=== PATIENT | female | born 1955 | race Caucasian/White ===

== ENCOUNTER 2017-03-19 20:18 | Emergency (ER) | payer OTHER ==
[2017-03-19 22:52] VITALS: BP 131/79
== END 2017-03-19 22:52 | disposition home or self-care (01) ==
LOC: ED 20:18
DX: K04.7 Periapical abscess without sinus (principal); H92.02 Otalgia, left ear; I10 Essential (primary) hypertension; E11.9 Type 2 diabetes mellitus without complications; E78.5 Hyperlipidemia, unspecified
CPT/HCPCS: J2001

== ENCOUNTER 2017-04-02 19:54 | Inpatient (IN) | payer OTHER ==
[~2017-04-02] VITALS: Ht 157.5 cm; Wt 80.4 kg
--- NOTE | 2017-04-02 21:24 | NUR ---
DR ATKINSON AT BEDSIDE FOR MSE.
--- NOTE | 2017-04-02 21:24 | NUR ---
REC'D A 61/F IN RM 9 WITH C/O CONSTIPATION X 1 WEEK. PT REPORTS DIZZINESS AND VOMITING X 1 DAY. PT AAOX4, RESP EVEN AND UNLABORED. ON CM. DAUGTHER AT BEDSIDE. CALL LIGHT WITHIN REACH, WILL CONTINUE TO MONITOR.
[2017-04-02 21:45] LABS: BASOPHIL % 0.3 % (0-2); PLATELET COUNT 291 x10^3mcL (130-400)
[2017-04-02 21:46] LABS: RED CELL DISTRIBUTION WIDTH 16.4 % (11.5-14.5)
--- NOTE | 2017-04-02 21:48 | NUR ---
MEDICATED PT FOR CONSTIPATION.
[2017-04-02 22:01] LABS: ALBUMIN 4.1 g/dL (3.4-5.0); ALKALINE PHOSPHATASE 107 U/L (46-116); ALT/SGPT 26 U/L (14-59); AMYLASE 43 U/L (25-115); AST/SGOT 33 U/L (15-37); BILIRUBIN TOTAL 0.61 mg/dL (0.20-1.00); CARBON DIOXIDE 37.2 mmol/L (21-32); CHLORIDE SERUM 98 mmol/L (98-107); CREATININE SERUM 0.9 mg/dL (0.6-1.0); GFR1 > 60 mL/min; LIPASE 292 IU/L (73-393); POTASSIUM SERUM 3.7 mmol/L (3.5-5.1); SODIUM SERUM 142 mmol/L (136-145); TOTAL PROTEIN, SERUM 8.7 g/dL (6.4-8.2)
[2017-04-02 22:03] LABS: GLUCOSE SERUM 480 mg/dL (74-106)
--- NOTE | 2017-04-02 22:45 | NUR ---
PT TAKEN TO CT VIA RSOLOMON.
--- NOTE | 2017-04-02 22:45 | NUR ---
MEDICATED PT FOR ELEVATED BLOOD GLUCOSE- 6UNIT. PLEASE SEE EMAR.
--- NOTE | 2017-04-02 23:13 | NUR ---
PT ASLEEP ON GURNEY, RESP EVEN AND UNLABORED. DAUGTHER AT BEDSIDE. WILL CONTINUE TO MONITOR.
--- NOTE | 2017-04-02 23:49 | NUR ---
PT AMBULATED TO THE RESTROOM.
--- NOTE | 2017-04-03 01:10 | NUR ---
MEDICATED PT FOR BLOOD GLUCOSE: 358; 6U. PLEASE SEE EMAR.
--- NOTE | 2017-04-03 01:20 | NUR ---
PT TOLERATED FLEET EDEMA. PLEASE SEE EMAR.
--- NOTE | 2017-04-03 03:14 | NUR ---
PT TOLERATED SOAP EDEMA. PLEASE SEE EMAR.
--- NOTE | 2017-04-03 03:47 | NUR ---
ASSISTED PT TO BEDSIDE COMMODE.
--- NOTE | 2017-04-03 04:23 | NUR ---
PT REPORTS GENERALIZED ABD PAIN AND NO BM AFTER EDEMA ADMINISTERED.
--- NOTE | 2017-04-03 04:42 | NUR ---
REPORT GIVEN TO NAOMI ARAGON TO ASSUME CARE OF THE PT.
--- NOTE | 2017-04-03 05:01 | NUR ---
REC'D PT ED VIA [facility]. AAOX4. PT ORIENTED TO ROOM AND SURROUNDINGS. TELE #29 SR. DENIES PAIN AT THIS TIME. NO N/V. NO SOB. NO ACUTE DISTRESS NOTED. ABD ROUND AND DISTENDED AND ACTIVE. IV INTACT AND PATENT TO LEFT HAND. NO EDEMA NOTED. WILL PROCEED TO THE PLAN OF CARE.
[2017-04-03] MEDS ORDERED: GLUCOTROL5 MG PO (05:09)
[2017-04-03] MEDS ORDERED: CLINDAMYCIN HC300 MG PO (05:09)
[2017-04-03] MEDS ORDERED: METFORMIN HCL1000 MG PO (05:09)
[2017-04-03] MEDS ORDERED: NAPROXEN500 MG PO (05:10)
[2017-04-03] MEDS ORDERED: ASPIR 8181 MG PO (05:11)
[2017-04-03] MEDS ORDERED: ACT15 PO (05:11)
[2017-04-03] MEDS ORDERED: LIPI10 PO (05:11)
[2017-04-03] MEDS ORDERED: IBUPROFEN400 MG PO (05:12)
[2017-04-03 05:20] VITALS: BP 128/62
[2017-04-03 05:33] LABS: PHOSPHOROUS 3.3 mg/dL (2.5-4.9)
[2017-04-03 05:37] LABS: FREE T4 1.48 ng/dL (0.76-1.46); FREE THYROXINE INDEX 4.4 ug/dL (1.4-4.5); T3 TOTAL 0.92 ng/mL; T4(THYROXINE) 11.4 ug/dL (4.7-13.3)
[2017-04-03 05:40] LABS: CHOLESTEROL/HDL RATIO 2.5
--- NOTE | 2017-04-03 06:29 | NUR ---
ROUNDS MADE. PT IS LAYING IN BED COMFORTABLY. DENIES PAIN AT THIS TIME. NO ACUTE DISTRESS OR SIGNIFICANT CHANGES NOTED. ALL NEEDS MET AND ATTENDED TO. IV INTACT AND PATENT INFUSING WELL. WILL ENDORSE ALL CONTINUITY CARE TO ONCOMING NURSE.
--- NOTE | 2017-04-03 07:35 | NUR ---
RECEIVED THE PATIENT AWAKE AND ORIENTED TO PERSON, PLACE AND TIME. PATIENT DENIED NAUSEA/VOMITING OR DIZZINESS AT THIS TIME. IVF NS VIA H/L TO LEFT HAND. TELE # 29 READS SINUS RHYTHMS. CALL LIGHT WITHIN REACH. SIDE RAILS UP X3.
--- NOTE | 2017-04-03 09:20 | NUR ---
DR. ESCOBEDO AND THE TEAM WERE MAKING ROUND TO SEE THE PATIENT. THE CARE PLAN WAS EXPLAINED TO THE PATIENT IN [facility] VIA INTERPERTER-DR. FREITAS, RESIDENT. THE PATIENT VERBALIZED UNDERSTANDING.
[2017-04-03 09:38] VITALS: BP 138/65
--- NOTE | 2017-04-03 10:54 | NUR ---
THE PATIENT GOT TEMP 100.2 AT 0938. PATIENT DENIED ANY SIGN/SYMPTOM. COOLING METHOD WAS APPLIED. RECHECKED TEMP 99.1; CONTINUE TO MONITOR.
--- NOTE | 2017-04-03 13:36 | NUR ---
Initial Nutrition Assessment Dx: intractable abd pain r/o early bowel obstruction PMHx: HTN, DM, HLD PSHx:Lasik eye surgery Labs: (04/02) BH, HDL:64H, A1c:12.5H, WBC:13.6H, Meds: Colace, Dulcolax, Glucophage, Levemir, NS IV, Zofran Diet:CCHO PO Intake: (04/03) B:40% Ht: 62in, 5'2" Wt: 177#,80.42kg BMI:32.4kg/m2 (obesity, class I) IBW: 110#,50kg %IBW: 161% UBW:160#, pt says it has beem awhile since she last weighed herself Age:61 y/o female Food Allergies:None Skin:intact Himanshu:20 Edema:None GI: Last BM:03/23 Nursing Trigger: N/V/D>3days Pt was admitted wirh abd pain r/o early bowel obstruction. CT of abdomen showed fecal impaction with colonic pseudoobstruction; cholelithiasis. CT scan also demonstrated cholelithiasis, per H&P. During visit, RN Jewel shea. Pt has not been checking her blood sugars in months and her vision has been blurry. Pt says she needs glasses but has not gone to to the doctor yet. Pt c/o N and vomiting as well as constipation with no BM since 03/23. Problem with: N: Yes V: Yes, per pt she has been vomiting the entire morning. D: No C:Yes, no BM since 03/23. Pt BM regimen of Coalce, Dulcolax and was given Milk of Magnesia in the ER. Problems with: Chewing: Yes, pt has missing teeth and an abscess in mouth affecting her chewing abilities. Swallowing: No Current appetite: Fair Recent wt change:+17# %wt change:-10% Vitamin/Supplement use:Vitamin D Special diet at home:No, pt eats a regular diet at home. Physical activity:Walking Education: Provided pt with diet education handouts in [employer] on Diabetes and used registered nurse first assistant phone to provide verbal diabetes diet education on what foods to eat and avoid. Estimated Nutritional Needs Based on ideal body weight 50kg Energy:8477-0233 kcal/d (25-30kcal/kg for adult maintenance ) Protein: 40-50g/d (0.8-1.0g/kg for adult maintenance) Fluid:1353-8893 ml/d (1 ml/kcal) or per doctor Nutrition Diagnosis 1. Altered GI function related to fecal impaction as evidenced by no BM x11 days. 2. Altered nutrion labs related to endocrinme dysfunction as evidenced by B and A1C:12.5 3. Chewing difficulty related to missing teeth and abscess in mouth as evidenced by PO intake:40% x 1 meal. Intervention 1. Recommend changing diet to CCHO Mechanical soft chopped. 2. Recommend outpatient diabetes class. Monitor/Evaluate Goal: PO intake at least 75% of estimated needs Monitor: PO intake, Labs, GI function F/U in 3-5 days as moderate risk:04/06-6
--- NOTE | 2017-04-03 13:38 | NUR ---
1. Recommend changing diet to CCHO Mechanical soft chopped due to pt with missing teeth and abscess in mouth.
[2017-04-03 14:26] VITALS: BP 100/64
--- NOTE | 2017-04-03 18:40 | NUR ---
THE PATIENT C/O NAUSEA; ZOFRAN 4MG IVP WAS ADMINISTERED TO THE PATIENT TWICE. HOWEVER, THE PATIENT STILL VOMITED [address] BENDER-RESIDENT ORDERED PHENERGAN 12.5MG IVP; THE MED WAS ADMINSTERED TO THE PATIENT. THE PATIENT WAS GIVEN COLACE 100MG PO X1 AND 250 MG PO X1, DULCOLAX 10MG [place] X2. ONLY WATERY STOOL CAME OUT. FLEET ENEMA WAS JUST GIVEN TO THE PATIENT. WILL NOTIFY THE RESIDENT THAT THE PATIENT HAS NOT HAVE SOLID STOOL YET DURING THE SHIFT.
[2017-04-03 19:09] VITALS: BP 145/58
[2017-04-03 21:48] VITALS: BP 141/86
--- NOTE | 2017-04-03 22:05 | NUR ---
RECEIVED PT LAYING IN BED. PT IS SLEEPY BUT EASILY AWAKENS WITH VERBAL TACTILE STIMULATION. PT DENIED ABDOMINAL PAIN BUT C/O ABDOMINAL DISCOMFORT. PT C/O NAUSEA, WILL MEDICATE PER DOCTOR'S PRN ORDER. IV SITE TO LEFT HAND IS PATENT AND INTACT. IV FLUIDS INFUSING PER DOCTOR'S ORDER. BED AT LOWEST POSITION. CALL LIGHT WITHIN REACH. WILL CONTINUE TO MONITOR.
--- NOTE | 2017-04-03 22:11 | NUR ---
PT HAD EPISODE OF VOMITING AND LOOSE STOOL. ADMIN DOCTOR'S ORDERED VOMITING MED. WILL CONTINUE TO MONITOR.
--- NOTE | 2017-04-03 23:05 | NUR ---
PT HAD WATERY LIQUID SMEAR BM. LACTULOSE GIVEN. WILL CONTINUE TO MONITOR.
--- NOTE | 2017-04-04 00:50 | NUR ---
PT IS SLEEPING SOUNDLY IN BED. SHE DOES NOT SEEM TO BE IN ANY DISTRESS AT THIS TIME. NO N&V NOTED. NO SIGNS OF PAIN. IV FLUIDS INFUSING PER DOCTOR'S ORDER. IV IS PATENT AND INTACT. CALL LIGHT WITHIN REACH. WILL CONTINUE TO MONITOR
--- NOTE | 2017-04-04 05:01 | NUR ---
PATIENT RESTED THROUGHOUT THE NIGHT. NO DISTRESS NOTED. NO C/O ABD PAIN. SAFETY AND COMFORT MEASURES MAINTAINED. BED IN LOWEST POSITION. CALL LIGHT WITHIN REACH. WILL CONTINUE TO MONITOR AND ENDORSE TO NEXT SHIFT NURSE.
[2017-04-04 06:12] LABS: CALCIUM 8.8 mg/dL (8.5-10.1); CARBON DIOXIDE 29.7 mmol/L (21-32); CHLORIDE SERUM 105 mmol/L (98-107); CREATININE SERUM 0.6 mg/dL (0.6-1.0); GFR1 > 60 mL/min; GLUCOSE SERUM 244 mg/dL (74-106); MAGNESIUM 2.2 mg/dL (1.8-2.4); POTASSIUM SERUM 3.7 mmol/L (3.5-5.1); SODIUM SERUM 141 mmol/L (136-145)
--- NOTE | 2017-04-04 06:43 | NUR ---
PATIENT HAD SMALL HARD BM. DR BENDER AWARE. MAG CITRATE BEING GIVEN AT THIS TIME.
[2017-04-04 06:54] LABS: BASOPHIL % 0.2 % (0-2); PLATELET COUNT 251 x10^3mcL (130-400)
[2017-04-04 07:03] VITALS: BP 171/92
[2017-04-04 07:07] LABS: RED CELL DISTRIBUTION WIDTH 16.9 % (11.5-14.5)
--- NOTE | 2017-04-04 08:00 | NUR ---
PATIENT WITH IV INTACT AND CONTINUE DON IV FLUIDS ORDERED. SHE HAS RECEIVED MIRALAX AND HAD MAGNESIUM CITRATE AND NO GOOD RESULTS AT THIS TIME. PATIENT WITH DIMINISHED BREATHS SOUNDS AND BOWEL SOUNDS HYPOACTIVE AT THIS TIME. PATIENT HAS BEEN OOB BUT ALSO AT TIMES IS INCONTINENT DUE TO SHE JUST DOES NOT WANT OT GET UP AND IS SLEEPY. PATIENT HAS VITALS AT THIS TIME ST 98.1, 89, 18, 171/92, 94% ON ROOM AIR. GAVE ALL MEDICATIONS ORDERED AND WILL MONITOR FOR EFFECTIVENESS ON THE BP. PATIENT NOED WITH FECAL IMPACTION AND CHOLELITAITSIS WELL A NON OBSTRUCTIVE KIDNEY STONES. PATIENT HAS NOTE DLABS OF WBC AT 13.4, BLUCOSE AT 244 AND RECEIVED SIX UNITS THIS AM. ASLOS NTOED IS PROTIEN AND AT 8.7. PATIENT AHS A LOW VOLUME STUDY ON THE CHEST X RAY AND WITH NOTED BVD TO THE RIGHT LOWER ETREMTIITES. SHE HAS EDEMA OF ONE PLUS TO THE LEGS AND PULES ARE PALPABLE TO ALL EXTREMTIIES.
--- NOTE | 2017-04-04 08:00 | NUR ---
RECEIVED PATIENT ALERT AND ORIENTED TIMES FOUR. SHE SPEAKS ONLY SPAINISH BUT WHEN SPOKEN IN HER LANGUAGE SHE UNDERSTANDS INSTRUCION AND IS WITHOUT COMPLAINTS OF PAIN AT THIS TIME.
--- NOTE | 2017-04-04 09:00 | NUR ---
SEEN BY THE RESIDENT AND STAFF AND PLAN OF CARE DISCUSSED WITH THE PATIENT IN [facility].
[2017-04-04 09:55] VITALS: BP 148/73
--- NOTE | 2017-04-04 11:32 | NUR ---
PATIENT REQUESTED ASSIST TO RESTROOM. SHE HAD PER THE PATIENT ONLY A SMALL STOOL. SHE HAS A FOUL SMELL NOTED POST THE HAVING THE STOOL SHE IS STILL WITH DISTENTION AND WILL BE GIVING A SOAP SUDS ENEMA ORDERED. PATIENT RECIEVE DTHE MIRALAX AND THE COLACE THIS AM.
--- NOTE | 2017-04-04 14:00 | NUR ---
GAVE THE SOAP SUDS ENEMA AND A MEDIUM STOOL NOTED SHE HAD BEEN GIVE THE ENTIRE LITER OF FLUID. PATIENT TOLERATED WELL. WILL REDO THE ENEMA IF NO FURTHER STOOL IS EXCRETTED. PATIENT IS AWARE OF PLAN OF CARE.
--- NOTE | 2017-04-04 14:09 | NUR ---
REMOVED THE TELE ORDERED AND WILL CONTINUE TO MONITOR.
--- NOTE | 2017-04-04 15:57 | NUR ---
SLEEPING MOST OF THE SHIFT AND PATIENT IS NPO. NO FURTHER STOOL AT THIS TIME. WILL BE GIVING THE ENEMA NOW SHE HAS NOT NEEDED TO GET UP TO GO FOR A WHILE NOW.
[2017-04-04 17:01] VITALS: Ht 157.5 cm; Wt 80.4 kg
[2017-04-04 18:26] VITALS: BP 152/74
--- NOTE | 2017-04-04 19:25 | NUR ---
PATIENT RECEIVED RESTING WITH EYES CLOSED AND SLEEPY BUT AWAKENS WITH VERBAL STIMULUS. NO DISTRESS NOTED. PATIENT DENIES ABD PAIN AND NAUSEA AT THIS TIME. IV SITE TO LEFT HAND, PATENT AND INTACT. IV FLUID INFUSING PER DOCTOR'S ORDER. BED IN LOWEST POSITION. CALL LIGHT WITHIN REACH. WILL CONTINUE TO MONITOR.
--- NOTE | 2017-04-04 19:29 | NUR ---
PATIENE HAD ANOTHER VERY LARGE STOOL. PATIENT EXPRESSED RELIEF OF DISTENTION. WILL ENDORSE FINDINGS TO THE NEXT SHIFT. PATIENT FOR KUB ORDERED.
[2017-04-04 20:51] VITALS: BP 121/63
--- NOTE | 2017-04-04 22:15 | NUR ---
PATIENT HAD LARGE SOFT/LOOSE BM AT THIS TIME.
--- NOTE | 2017-04-05 00:05 | NUR ---
PATIENT HAD LARGE SOFT/LOOSE BM AT THIS TIME.
--- NOTE | 2017-04-05 01:00 | NUR ---
PATIENT HAD MEDIUM SOFT/LOOSE BM AT THIS TIME.
--- NOTE | 2017-04-05 05:47 | NUR ---
PATIENT HAD LOOSE BM AT THIS TIME.
[2017-04-05 06:03] VITALS: BP 128/62
[2017-04-05 06:18] LABS: BASOPHIL % 0.5 % (0-2); PLATELET COUNT 234 x10^3mcL (130-400)
[2017-04-05 06:42] LABS: RED CELL DISTRIBUTION WIDTH 17.6 % (11.5-14.5)
[2017-04-05 07:05] LABS: CALCIUM 8.6 mg/dL (8.5-10.1); CARBON DIOXIDE 32.1 mmol/L (21-32); CHLORIDE SERUM 106 mmol/L (98-107); CREATININE SERUM 0.6 mg/dL (0.6-1.0); GFR1 > 60 mL/min; GLUCOSE SERUM 145 mg/dL (74-106); POTASSIUM SERUM 3.5 mmol/L (3.5-5.1); SODIUM SERUM 141 mmol/L (136-145)
--- NOTE | 2017-04-05 08:00 | NUR ---
PATIENT RECEIVED ALERT AND ORIENTED AND IS ABLE TO MAKE NEEDS KNOWN. PATIENT HAS BEEN INCONTINENT OF STOOL AND URINE OVER NIGHT AND SHE IS ENCOUAGE TO GET UP AND USE THE RESTROM FOR HER SKIN AND FOR HER MOBILITY TO BE INSURED. SHE HAD BEEN LAYING IN BED IN HER OWN EXCREMENT OVER NIGHT AND THIS IS ODD WHEN SHE CAN MOVE AND CAN CALL FOR ASSISTANCE. SHE IS AMBLATORY AT HOME AND TAKES CARE OF THE FAMILY AND GRANDCHILDREN. PATIENT DOES NOT APPEAR DEPRESSED AND HAS NOT EXPRESSED ANY FEELOING OF THIS TO THE STAFF. PATIENT HAS DIMINSIHED BUT CLEAR BREATH SOUNDS AND BOWEL SOUNDS ARE ACTIVE. MCKENZIE HAS HAD MANY LARGE LIQUID STOOLS AND IS NOW WITH SOFTER ABDOMEN AND LESS NAUSEA. PATIENT HAD THE SOAP SUDS ENEMA AND TOLERATED THE ENTIRE LITER OF FLUID TO RECTUM. SHE IS NOW ON CLEAR LIQUID DIET AND NOTED THE KUB SHOS A MORE GASEOUS NATURE TO THE DISTRENTION THAN THE STOOL PREVIOUSLY SEEN. PATIENT HAS BLOOD SUGAR THIS AM AT 156 AND WAS GIVEN 3 UNITS AT THAT TIME. GAVE LEVIMIR ORERED AND PATIENT HAS NOTED VITALSA AT 97.5, 74, 20, 128/62, 96% ON ROOM AIR. OSMANI HAS HISTOYR OF DIABETES AND HAS HAD POOR CONTROL AND PER REPORT WAS NON COMPLIANT AT HOME WITH HER MEDICATIONS. SHE HAS A HISTOYR OF AIC AT 12.5 AND HTN, HLD AND LASIC PROCEDURE WAS PREFORMED ON HER EYES. PATIENT AHS SOEM PVD TO THE RIGHT LOWER EXTREMITY. TOLERATED CLEAR LIQUID DIET AND DENIES PAIN OR NAUSEA AT THIS TIME.
--- NOTE | 2017-04-05 09:00 | NUR ---
SEEN BY THE INTERNS AND DR GRIMES. PLAN OF CARE DISCUSSED. PATIENT INDICATED SHE IS VERY HAPPY WITH THE RESULTS OF HER STAY AND FEELING BETTER AT THIS TIME.
[2017-04-05 09:22] VITALS: BP 134/62
--- NOTE | 2017-04-05 11:30 | NUR ---
BLOOD SUGAR AT 1130 AT 212 AND GAVE 3 UNITS OF REGULAR ORDERED.
[2017-04-05 13:30] VITALS: BP 134/62
[2017-04-05] MEDS ORDERED: MIRALAX17 GM/Dose PO (13:54)
--- NOTE | 2017-04-05 14:20 | NUR ---
LUCERO TREVIZO ANOTHER SOFT SEEDY STOOL. PATIENT HAS BEEN ADVISED OF NEED FOR MORE FLUIDS AND POSSIBLE TREATMENT ROUTINE FOR HER TO PREVENT FUTURE CONSTIPATION. ADVISING HER THAT SHE NEEDS TO HAVE A STOOL IF NOT DAILY SHE SOUND HAVE NO MORE THAN TWO DAYS BETWEEN STOOLS.
== END 2017-04-05 15:46 | disposition home or self-care (01) | DRG 247 ==
LOC: ED 19:54 → DU 04-03 04:26 → MU 04-04 13:58
PROVIDERS: Emergency Medicine; ADMIT Family Medicine
DX: K56.41 Fecal impaction (principal); D68.69 Other thrombophilia; E11.65 Type 2 diabetes mellitus with hyperglycemia; E83.41 Hypermagnesemia; N13.30 Unspecified hydronephrosis; K80.20 Calculus of gallbladder without cholecystitis without obstruction; I10 Essential (primary) hypertension; E78.5 Hyperlipidemia, unspecified; E78.00 Pure hypercholesterolemia, unspecified; D72.829 Elevated white blood cell count, unspecified; E66.9 Obesity, unspecified; Z79.82 Long term (current) use of aspirin; Z68.32 Body mass index [BMI] 32.0-32.9, adult; Z79.84 Long term (current) use of oral hypoglycemic drugs; Z79.899 Other long term (current) drug therapy
CPT/HCPCS: 83880; 84439; J1815; J2405; J2550; J7030; Q0092